=== PATIENT | female | born 1965 | race Caucasian/White ===

== ENCOUNTER 2022-01-02 08:05 | Emergency (ER) | payer OTHER, SELFPAY ==
--- NOTE | 2022-01-02 08:13 | ED.SKABFB ---
HPI - Skin/Abscess/Foreign Bdy General Chief complaint: Skin/Abscess/Foreign Body Stated complaint: insect bite Time Seen by Provider: 01/02/22 08:16 Source: patient, RN notes reviewed and old records reviewed Mode of arrival: ambulatory Limitations: no limitations History of Present Illness HPI narrative: 56-year-old female presents to the [facility] after getting stung on Friday, 2 days ago on the second finger left hand dorsal aspect. States it is getting better but it is pink and swollen. Has taken Excedrin but no other treatment prior to arrival. Patient also states that she was stung by a wasp 2 weeks ago and that got better pretty quickly. Related Data Allergies Allergy/AdvReac Type Severity Reaction Status Date / Time No Known Allergies Allergy Unverified 01/02/22 08:17 Review of Systems Review of Systems: All systems reviewed & are unremarkable except as noted in HPI and below Constitutional: Constitutional: Reports no additional constitutional complaints, Denies chills and Denies fever(s) Eyes: Eyes: Reports no additional eye complaints ENT: Reports system reviewed and no additional complaints, except as documented Cardiovascular: Cardiovascular: Reports no additional cardiovascular complaints Respiratory: Respiratory: Reports no additional respiratory complaints Gastrointestinal: Gastrointestinal: Reports no additional gastrointestinal complaints Musculoskeletal: Musculoskeletal: Reports no additional musculoskeletal complaints Integumentary/Breasts: Skin/Breast: Reports as per HPI Neurologic: Reports system reviewed and no additional complaints, except as documented Psychiatric: Psychiatric: Reports no additional psychiatric complaints Allergic/Immunologic: Allergic/Immunologic: Reports no additional allergic/immunologic complaints [facility] Surgical History Surgical History H/O abdominoplasty History of breast augmentation Hx of section Family History Family History Father , 82 yrs old Lung cancer Social History Social History Social History: Smoking status: Never smoker Second hand tobacco smoke exposure: No Alcohol intake: never Substance use: never Substance use type: does not use Gender identity (if verbalized by the patient): Female Sexual Orientation (if Verbalized by the Patient): Straight or Heterosexual Comments At the time of my signature, I reviewed and agree with the nursing past medical, surgical, social, and family history. There is no relevant family history pertinent to the patient complaint. Exam Const: General: healthy appearing, no acute distress and alert Nutritional Appearance: well nourished Orientation/consciousness: patient oriented x3 Limitations: no limitations HENMT: Head: normal to inspection Ears: external ears normal Eyes: General: appearance normal, both eyes and all related structures Pupils: Equal, round and reactive pupils present Neck: Neck: normal visual inspection, no lymphadenopathy and no meningeal signs Chest: Chest palpation & inspection: normal inspection of the chest Resp: Effort & Inspection: normal respiratory effort and no use of accessory muscles Auscultation: clear to auscultation bilaterally, no crackles, no rales, no rhonchi and no wheezes Cardio: Rate: regular rate Rhythm: regular rhythm Back/Spine/Pelvis: Cervical Spine: normal cervical lordosis Thoracic/Lumbar Spine: thoracic and lumbar spine normal to inspection Skin: General skin exam: normal color Rashes: no rashes Wounds: no wounds Neuro: General: patient oriented x3, moves all extremities, no meningeal signs and no focal motor deficits Cranial nerves: Yes Equal, round and reactive pupils present Speech: normal speech Gait exam (Neuro): Normal gait present Extrem
[2022-01-02 08:16] VITALS: BP 125/79; PULSE 65; RESP 16; TEMP 36.7; O2SAT 99
[2022-01-02 08:18] VITALS: BP 125/79; PULSE 65; RESP 16; TEMP 36.7; O2SAT 99
== END 2022-01-02 08:34 | disposition home or self-care (01) ==
PROVIDERS: Emergency Provider Nurse Practitioner; Referring Provider Internal Medicine
DX: T63.461A Toxic effect of venom of wasps, accidental (unintentional), initial encounter (principal)
CPT/HCPCS: 99213; G0463

== ENCOUNTER 2022-03-05 13:05 | Emergency (ER) | payer OTHER, SELFPAY ==
[2022-03-05 13:13] VITALS: BP 149/88; PULSE 87; RESP 16; TEMP 36.1; O2SAT 100
--- NOTE | 2022-03-05 13:13 | ED.ABDPAIN ---
HPI - Abdominal Pain General Chief Complaint: Skin/Abscess/Foreign Body Stated Complaint: Abdominal Pain Time Seen by Provider: 03/05/22 13:14 Source: patient, RN notes reviewed and old records reviewed Mode of arrival: ambulatory Limitations: no limitations History of Present Illness HPI narrative: 56-year-old female presents to the [facility] with complaints with an abscess measuring 1 cm in diameter in the center of her /tummy tuck scar. Slight amount of redness and surrounding area. Firm. No fluctuance in the abdominal wall. Related Data Allergies Allergy/AdvReac Type Severity Reaction Status Date / Time No Known Allergies Allergy Verified 03/05/22 13:14 Review of Systems Review of Systems: All systems reviewed & are unremarkable except as noted in HPI and below Constitutional: Constitutional: Reports no additional constitutional complaints, Denies chills and Denies fever(s) Eyes: Eyes: Reports no additional eye complaints ENT: Reports system reviewed and no additional complaints, except as documented Cardiovascular: Cardiovascular: Reports no additional cardiovascular complaints Respiratory: Respiratory: Reports no additional respiratory complaints Gastrointestinal: Gastrointestinal: Reports no additional gastrointestinal complaints Musculoskeletal: Musculoskeletal: Reports no additional musculoskeletal complaints Integumentary/Breasts: Skin/Breast: Reports as per HPI Neurologic: Reports system reviewed and no additional complaints, except as documented Psychiatric: Psychiatric: Reports no additional psychiatric complaints Allergic/Immunologic: Allergic/Immunologic: Reports no additional allergic/immunologic complaints [facility] Surgical History Surgical History H/O abdominoplasty History of breast augmentation Hx of section Family History Family History Father , 82 yrs old Lung cancer Social History Social History Social History: Smoking status: Never smoker Second hand tobacco smoke exposure: No Alcohol intake: never Substance use: never Substance use type: does not use Gender identity (if verbalized by the patient): Female Sexual Orientation (if Verbalized by the Patient): Straight or Heterosexual Comments At the time of my signature, I reviewed and agree with the nursing past medical, surgical, social, and family history. There is no relevant family history pertinent to the patient complaint. Exam Const: General: healthy appearing, comfortable, no acute distress, well developed, alert and well nourished Nutritional Appearance: well nourished Orientation/consciousness: patient oriented x3 Limitations: no limitations HENMT: Head: normal to inspection Ears: external ears normal Eyes: General: appearance normal, both eyes and all related structures Pupils: Equal, round and reactive pupils present Neck: Neck: normal visual inspection, full ROM, no lymphadenopathy and no meningeal signs Chest: Chest palpation & inspection: normal inspection of the chest Resp: Effort & Inspection: normal respiratory effort and no use of accessory muscles Auscultation: clear to auscultation bilaterally, no crackles, no rales, no rhonchi and no wheezes Cardio: Rate: regular rate Rhythm: regular rhythm GI: GI Palp: Yes Soft to palpation and No Tenderness to palpation present (GI) Back/Spine/Pelvis: Cervical Spine: cervical ROM normal and No Cervical spine tenderness Thoracic/Lumbar Spine: thoracic and lumbar spine normal to inspection and thoraco-lumbar ROM normal Skin: General skin exam: normal color Rashes: no rashes Wounds: no wounds Full body images: 1. 1 cm diameter pustule, 1.5 cm surrounding erythema Neuro: General: patient oriented x3, moves all extremities, no meningeal sign
[2022-03-05 13:14] VITALS: BP 149/88; PULSE 87; RESP 16; TEMP 36.1; O2SAT 100
== END 2022-03-05 13:48 | disposition home or self-care (01) ==
PROVIDERS: Emergency Provider Nurse Practitioner
DX: L02.211 Cutaneous abscess of abdominal wall (principal)
CPT/HCPCS: 10060; 87070; 87075; 87077; 87205; 99213; G0463

== ENCOUNTER 2022-05-11 08:02 | Emergency (ER) | payer OTHER, SELFPAY ==
[2022-05-11 08:13] VITALS: BP 159/85; PULSE 72; RESP 16; TEMP 36.8; O2SAT 99
--- NOTE | 2022-05-11 08:21 | ED.GENADULT ---
HPI - General Adult General Chief complaint: Skin/Abscess/Foreign Body Stated complaint: possible hernia in groin Time Seen by Provider: 05/11/22 08:21 Source: patient Mode of arrival: ambulatory Limitations: no limitations History of Present Illness HPI narrative: 56-year-old female presents to [facility] with complaints of swelling,spongy feeling. and tenderness to right side of area that previously had been drained on 03/05/2023 along previous and abdominal plasty scar. The tissue is not red or warm some tenderness and fullness of tissue palpated along right side of abdominal scar area tissue not fluctuant. Patient reports that she works at [employer] and she thought maybe she picked up a kid and that was causing the area to swell and become painful like a hernia. MD complaint: swelling along right side of previous c section/abdominoplasty scar Onset (ago): day(s) (4) Location: abdomen Severity scale (1-10): 3 Treatments prior to arrival: cold therapy Related Data Allergies Allergy/AdvReac Type Severity Reaction Status Date / Time No Known Allergies Allergy Verified 05/11/22 08:12 Review of Systems Review of Systems: CONSTITUTIONAL: Denies fever, chills, or sweats. EYES: Denies visual changes, redness, or discharge. ENT: Denies rhinorrhea, congestion, sore throat, or otalgia. CARDIOVASCULAR: Denies chest pain, palpitations, or edema. RESPIRATORY: Denies cough or dyspnea. GASTROINTESTINAL: Denies abdominal pain, nausea, vomiting, or diarrhea.tenderness along right of midline of previous /abdominoplasty incision tissue spongy feeling with tenderness on palpation, no fluctuation of tissue. GENITOURINARY: Denies dysuria or hematuria. SKIN: Denies rash or itching. MUSCULOSKELETAL: Denies back pain, joint pain, or myalgia. NEUROLOGIC: Denies headache, numbness, or weakness. PSYCHIATRIC: Denies anxiety or depression. All systems reviewed & are unremarkable except as noted in HPI and below PMFSH Surgical History Surgical History H/O abdominoplasty History of breast augmentation Hx of section Family History Family History Father , 82 yrs old Lung cancer Social History Social History Social History: Smoking status: Never smoker Second hand tobacco smoke exposure: No Alcohol intake: never Substance use: never Substance use type: does not use Gender identity (if verbalized by the patient): Female Sexual Orientation (if Verbalized by the Patient): Straight or Heterosexual Comments At time of signature, agree with nursing past medical, surgical, social and family history. There is no relevant family history pertinent to the presenting complaint Exam Narrative: GENERAL: Well-appearing, well-nourished, and in no acute distress. HEAD: Normocephalic, atraumatic. EYES: PERRLA and EOMI. ENT: Nares clear, no rhinorrhea or epistaxis. Mucous membranes moist. NECK: Supple. CHEST: Clear to auscultation. No respiratory distress. HEART: Regular rate and rhythm. No murmur heard. Normal peripheral pulses. ABDOMEN: Soft, nontender, nondistended, normal active bowel sounds. EXTREMITIES: Normal range of motion. No edema. SKIN: Warm, dry, no rash. NEURO: No focal deficits. Alert and oriented x3. Course Course Emergency Course: Patient is aware of diagnosis, understands and agrees to treatment plan.? Anticipatory guidance given.? Patient agrees to follow-up as directed and is aware of reasons to seek care at the emergency department. Portions of this record may have been created with voice recognition software Level of Care: Express Care Visit Vital Signs Vital signs: Vital Signs Temperature 36.8 C 05/11/22 08:13 Pulse Rate 72 05/11/22 08:13 Respiratory Rate 16 05/11/22 08:13 Blood Pressure 159/85 H
== END 2022-05-11 09:05 | disposition home or self-care (01) ==
PROVIDERS: Emergency Provider Registered Nurse
DX: L02.211 Cutaneous abscess of abdominal wall (principal)
CPT/HCPCS: 99213; G0463

== ENCOUNTER 2022-05-23 09:00 | Outpatient (NON) | payer OTHER, SELFPAY | END 2022-05-23 09:01 | disposition home or self-care (01) | PROVIDERS: Visit Provider Surgery | DX: L72.0 Epidermal cyst (principal) | CPT/HCPCS: 88305 ==

== ENCOUNTER 2022-05-23 10:29 | Day surgery (SDC) | payer OTHER, SELFPAY ==
[2022-05-16 15:31] VITALS: BMI 24.0
[2022-05-17 09:59] VITALS: BMI 23.1
--- NOTE | 2022-05-23 08:17 | WPDANESEPPF ---
Anes - Initial Pre Proc Eval Procedure: Operation Date: 05/23/22 12:30 Proposed Procedures p Excision Lower Abdominal Epidermal Inclusion Cyst - Blue Crystal MD Date/Time: 05/23/22 08:17 Surgeon: Blue Crystal MD Pre Op Diagnosis: Epidermal Inclusion Cyst-Lower Abdominal Wall Patient Data Age: 56 Gender: F Height: 1.63 m Weight: 61 kg Allergies Allergy/AdvReac Type Severity Reaction Status Date / Time No Known Allergies Allergy Verified 05/23/22 10:59 Home Medications Medication Instructions Recorded Confirmed Type clindamycin HCl 300 mg capsule 300 mg PO Q8H 7 days #21 caps 05/16/22 05/23/22 Rx [id number] 250 1 tablet PO Q4-6H PRN Headache 05/17/22 05/23/22 History mg-250 mg-65 mg tablet (Excedrin Extra Strength) Patient hx anesthesia problems: none Family hx anesthesia problems: none Results Review: All pre-operative results and documents have been reviewed as part of the pre-operative evaluation. [facility] Past Medical History Medical History History of blood transfusion Surgical History Surgical History H/O abdominoplasty History of breast augmentation Hx of section Family History Family History Father , 82 yrs old Lung cancer Mother Acute myocardial infarction Diabetes mellitus Hypertension Unknown Diabetes mellitus Social History Social History (Updated 05/23/22 @ 12:09 by Ervin August DO) Social History: Smoking status: Former smoker Second hand tobacco smoke exposure: No Alcohol intake: never Substance use: never Substance use type: does not use Living arrangements: with family Occupation/Education: occupation Gender identity (if verbalized by the patient): Female Sexual Orientation (if Verbalized by the Patient): Straight or Heterosexual Spiritual care concerns: No Anes - Eval Final PreProcedure Day of Procedure 05/23/22 08:17 Patient weight: normal Heart: regular rate and rhythm Lungs: clear to auscultation and normal air movement Airway: Mallampati scale class II Neurological: alert and oriented Last oral intake: >/= 8 hours ASA classification: II Emergent: no Anesthetic plan: proceed Anesthesia type and monitoring: general GIVS and standard monitoring Results Review: All pre-operative results and documents have been reviewed as part of the pre-operative evaluation. Informed Consent: The patient's anesthetic plan and its attendant risks and benefits were discussed with the patient/family/POA. Questions were solicited and answers provided to the satisfaction of the patient/family/POA.
[2022-05-23 11:10] VITALS: BP 142/89; PULSE 63; RESP 18; TEMP 36.8; O2SAT 100; BMI 23.4
--- NOTE | 2022-05-23 11:11 | SUR.PREOP ---
1055; PT BROUGHT BACK TO PREOP. PT STATES SHE IS VERY NERVOUS. STATES SHES NOT SURE SHE WANTS TO HAVE THE SURGERY. INSTRUCTED PT DR RICHARDS WILL SPEAK WITH HER PRIOR TO PROCEDURE. PT VERBALIZED UNDERSTANDING.
[2022-05-23] MEDS: LACTATED RINGERS 1,000 ML 30 ML IV CONT (11:27)
--- NOTE | 2022-05-23 12:09 | WPDHPUPDATE1 ---
History and Physical Update Update Date/Time: 05/23/22 12:09 History and Physical has been reviewed, including an updated exam of the patient. There are NO changes in the patient's condition. Risks, benefits, and alternatives have been discussed and questions answered. Patient agrees to proceed with procedure.
[2022-05-23] MEDS: ceFAZolin SODIUM 2 GM/20 ML SW SYRINGE IV PUSH (12:14)
[2022-05-23] MEDS: LIDO 1%/EPINEPHRINE 1:100,000 20 ML VIAL 10 ML INFILTRATE (12:28)
[2022-05-23 12:55] VITALS: BP 137/79; PULSE 75; RESP 18; O2SAT 100
[2022-05-23 13:15] VITALS: BP 128/87; PULSE 77; RESP 16; O2SAT 100
--- NOTE | 2022-05-23 13:21 | SUR.PHASEII ---
PT AWAKE AND ALERT. DENIES PAIN. STATES MILD HEADACHE, TOLERABLE. DRINKING SODA.
[2022-05-23 13:35] VITALS: BP 150/84; PULSE 73; RESP 18; O2SAT 100
--- NOTE | 2022-05-23 13:40 | SUR.PHASEII ---
PT AWAKE AND ALERT. DENIES PAIN. STATES SHE IS READY TO GO HOME. ABDOMEN SOFT. INCISION D/I. WELL APPROXIMATED
[2022-05-23 13:50] VITALS: BP 137/86; PULSE 70; RESP 16; O2SAT 100
--- NOTE | 2022-05-23 13:50 | SUR.PHASEII ---
PT AND SPOUSE GIVEN A PIECE OF PAPER WITH BUNDLE BRANCH BLOCK WRITTEN ON IT. PER DR HELTON DURING SURGERY. DR HELTON SPOKE TO PT REGARDING THIS. HE STATED WHEN SHE GETS A PCP SHE SHOULD FOLLOW UP ON IT. PT VERBALIZED UNDERSTANDING.
--- NOTE | 2022-05-23 14:36 | P.OP_ITS ---
Procedure Note - Detailed Date of Procedure 05/23/22 Pre-op Diagnosis Epidermal Inclusion Cyst-Lower Abdominal Wall Post-op Diagnosis Same Procedure Performed Excision lower abdominal wall inclusion cyst with 4 centimeter intermediate lay er wound closure Surgeon Blue Crystal MD Anesthesia MAC Indications Patient has a dermal inclusion cyst which has been intermittently infected and has been draining for quite some time. It is located in the midline of the lower abdominal wall. She presents now for excision. Findings There is underlying epidermal inclusion cyst with chronic granuloma formation in the deeper tissues due to retained permanent suture. There was a small amount of purulent fluid noted. Description of Procedure After informed consent was obtained the patient brought to the operating room where she was placed in a supine position on the operating table and then IV anesthesia was administered. The area lower abdominal wall in the suprapubic region was then prepped and draped in usual sterile fashion. A time-out was then performed correctly identifying the patient as well as the procedure to be performed and I verified the site marking. She is given Ancef for perioperative IV antibiotics. I then made a transverse elliptical incision incorporating the cyst wall and the underlying chronic granulation tissue. I extended the incision initially with the scalpel down through the subcutaneous tissues and then utilized electrocautery to dissect all the way down to the underlying fascia. On the fascia I found a permanent Ethibond stitch which appeared to be responsible for her chronic suture granuloma which likely contributed to the chronic drainage. This stitch was removed and discarded. I then irrigated out the wound with copious sterile saline solution. I then measured the cyst that I excised and it was 2 x 1 x 1 cm. It was passed off table sent to pathology for examination. I then irrigated decision sterile saline solution hemostasis was good. I then closed the small fascia defect which was created after removing the stitch with interrupted 0 Vicryl sutures. I then proceeded to close incision multiple layers of interrupted 3 0 Vicryl sutures in the subcu tissues. The skin edges were then approximated with a running subcuticular 4 0 Monocryl suture. The length of the intermediate layered wound closure was 4 centimeters. The patient tolerated the procedure well no complications. All sponges, needles, and instrument counts were correct at the end procedure. EBL was _15__cc. The patient was awakened and taken to recovery in stable satisfactory condition Estimated Blood Loss 15 Drains No Packing No Pathology Yes Complications No immediate complications Condition Stable Disposition PACU [facility] Billing Surgery - Charge Forward: Surgery Billing
== END 2022-05-23 13:54 | disposition home or self-care (01) ==
PROVIDERS: Visit Provider Surgery
PROC: (CPT 22903; principal; 2022-05-23 12:30)
DX: D21.4 Benign neoplasm of connective and other soft tissue of abdomen (principal)
CPT/HCPCS: 22903